=== PATIENT | male | born 2000 | race Caucasian/White ===

== ENCOUNTER 2022-01-13 11:59 | Emergency (ER) | payer OTHER, SELFPAY ==
[2022-01-13 12:17] VITALS: BP 137/59; PULSE 79; RESP 16; TEMP 37.2; O2SAT 100
--- NOTE | 2022-01-13 12:56 | ED.SKABFB ---
HPI - Skin/Abscess/Foreign Bdy General Chief complaint: Skin/Abscess/Foreign Body Stated complaint: Skin Sore Time Seen by Provider: 01/13/22 12:50 Source: patient, RN notes reviewed and old records reviewed Mode of arrival: ambulatory Limitations: no limitations History of Present Illness HPI narrative: 21-year-old male who presents to [facility] with complaints of lesion on his right neck for the past 1 month.Patient states that the mole's appearance has been changing getting worse.Patient has some redness at base of lesion and some blackish tissue at distal aspect of lesion, some old bloody drainage at base where skin irritated. Patient reports that he has not contacted his PCP about lesion did try to get appointment can't be seen till February. MD complaint: lesion (mole of 1 month duration with changes) Tetanus up to date: yes Related Data Home Medications Medication Instructions Recorded Confirmed No Home Medications 01/13/22 01/13/22 Allergies Allergy/AdvReac Type Severity Reaction Status Date / Time No Known Allergies Allergy Verified 01/13/22 12:41 Review of Systems Review of Systems: CONSTITUTIONAL: Denies fever, chills, or sweats. EYES: Denies visual changes, redness, or discharge. ENT: Denies rhinorrhea, congestion, sore throat, or otalgia. CARDIOVASCULAR: Denies chest pain, palpitations, or edema. RESPIRATORY: Denies cough or dyspnea. GASTROINTESTINAL: Denies abdominal pain, nausea, vomiting, or diarrhea. GENITOURINARY: Denies dysuria or hematuria. SKIN: Denies rash or itching.positive for changing mole to right side of neck MUSCULOSKELETAL: Denies back pain, joint pain, or myalgia. NEUROLOGIC: Denies headache, numbness, or weakness. PSYCHIATRIC: Denies anxiety or depression. All systems reviewed & are unremarkable except as noted in HPI and below PMFSH Social History Social History (Updated 01/14/22 @ 10:00 by Monika Colon NP) Smoking status: Never smoker Living arrangements: with family Gender identity (if verbalized by the patient): Male Comments At time of signature, agree with nursing past medical, surgical, social and family history. There is no relevant family history pertinent to the presenting complaint Exam Narrative: GENERAL: Well-appearing, well-nourished, and in no acute distress. HEAD: Normocephalic, atraumatic. EYES: PERRLA and EOMI. ENT: Nares clear, no rhinorrhea or epistaxis. Mucous membranes moist. NECK: Supple.no lymphadenopathy CHEST: Clear to auscultation. No respiratory distress.SAO2 100% on room air HEART: Regular rate and rhythm. No murmur heard. Normal peripheral pulses. ABDOMEN: Soft, nontender, nondistended, normal active bowel sounds. EXTREMITIES: Normal range of motion. No edema. SKIN: Warm, dry, no rash.0.25cm diameter red based lesion to right side of neck with some darkened tissue at distal end of lesion, patient reports changing in appearance. NEURO: No focal deficits. Alert and oriented x3. Course Course Emergency Course: Patient is aware of diagnosis, understands and agrees to treatment plan.? Anticipatory guidance given.? Patient agrees to follow-up as directed and is aware of reasons to seek care at the emergency department. Portions of this record may have been created with voice recognition software Level of Care: Express Care Visit Vital Signs Vital signs: Vital Signs Temperature 37.2 C 01/13/22 12:17 Pulse Rate 79 01/13/22 12:17 Respiratory Rate 16 01/13/22 12:17 Blood Pressure 137/59 L 01/13/22 12:17 Pulse Oximetry 100 01/13/22 12:17 Oxygen Delivery Room Air 01/13/22 12:17 Temperature 37.2 C 01/13/22 12:17 Pulse Rate 79 01/13/22 12:17 Respiratory Rate 16 01/13/22 12:17 Blood Pressure 137/59 L 01/13/22 12:17 Pulse Oximetry 100 01/13/22 12:17 Oxygen Delivery Room Air 01/13/22 12:17 Reviewed MDM - Skin/Abscess/Foreign Bdy Differential Diagnosis Differential diagnosis: Likely abscess of skin
== END 2022-01-13 13:44 | disposition home or self-care (01) ==
PROVIDERS: Emergency Provider Registered Nurse; PCP Hospitalist
DX: L98.9 Disorder of the skin and subcutaneous tissue, unspecified (principal)
CPT/HCPCS: 99211; G0463